=== PATIENT | female | born 1995 | race Caucasian/White ===

== ENCOUNTER 2021-07-26 09:16 | Emergency (ER) | payer OTHER, MEDICAID, SELFPAY ==
[2021-07-26 09:43] VITALS: BP 143/93; PULSE 67; RESP 19; TEMP 36.9; O2SAT 99; BMI 30.3
[2021-07-26 10:17] LABS: Appearance Urine UA SL CLOUDY; Bilirubin Urine UA NEGATIVE (NEGATIVE); Color Urine UA YELLOW; Glucose Urine UA NEGATIVE (Negative); Ketones Urine UA NEGATIVE (NEGATIVE); Leukocyte Esterase Urine UA 3+ (NEGATIVE); Nitrite Urine UA NEGATIVE (Negative); Occult Blood Urine UA TRACE-LYSED (Negative); Protein Urine UA NEGATIVE (Negative); Specific Gravity Urine UA 1.015 (1.000-1.035); Urobilinogen Urine UA 0.2 E.U./dL (0.2)
[2021-07-26 10:22] LABS: Bacteria Urine Moderate (10-30); Culture Indicated Urine Cult Not Indicated; RBC Urine 1-5/HPF (0-5/HPF); Squamous Epithelial Cell Urine 10-30 /HPF (0-5/HPF); WBC Urine 10-30/HPF (0-5/HPF)
[2021-07-26 11:45] LABS: Urine Chlamydia NOT DETECTED; Urine N gonorrhoeae NOT DETECTED
== END 2021-07-26 10:55 | disposition left against medical advice (07) ==
PROVIDERS: Emergency Provider Emergency Medicine
DX: R10.9 Unspecified abdominal pain (principal); N89.8 Other specified noninflammatory disorders of vagina; Z11.3 Encounter for screening for infections with a predominantly sexual mode of transmission
CPT/HCPCS: 81001; 81003; 81025; 87491; 87591; 99282

== ENCOUNTER 2022-03-01 11:04 | Emergency (ER) | payer OTHER, MEDICAID, SELFPAY ==
[2022-03-01 11:33] VITALS: BP 144/91; PULSE 78; RESP 15; TEMP 36.2; O2SAT 99; BMI 31.8
--- NOTE | 2022-03-01 11:36 | DI.RAD.S_ITS ---
PROCEDURE: XR CHEST 1V INDICATIONS: chest pain TECHNIQUE: One view of the chest was acquired. COMPARISON: None. FINDINGS: Surgical changes and devices: None. Lungs and pleura: Lungs are clear. No pleural effusions or pneumothorax. Mediastinum: Mediastinal contours appear normal. Heart size is normal. Bones and chest wall: No suspicious bony lesions. Overlying soft tissues appear unremarkable. IMPRESSION: No acute cardiopulmonary process demonstrated radiographically. Dictated by: Trev Cain M.D. on 03/01/2022 at 12:41 Approved by: Trev Cain M.D. on 03/01/2022 at 12:41
[2022-03-01 11:53] LABS: Add Manual Diff / Slide Review NO; Basophils Absolute Auto 0 /uL (0-100); Basophils Percent Auto 0.4 % (0-2); Eosinophils Absolute Auto 100 /uL (0-450); Eosinophils Percent Auto 1.5 % (2-4); Hematocrit 41.1 % (36-46); Hemoglobin 14.2 g/dL (12.0-16.0); Lymphocytes Absolute Auto 2200 /uL (1100-4500); Lymphocytes Percent Auto 25.3 % (25-40); Mean Corpuscular HGB Conc 34.4 % (30-36); Mean Corpuscular Hemoglobin 31.2 PG (26-34); Mean Corpuscular Volume 90.6 fL (80-100); Monocytes Absolute Auto 500 /uL (0-900); Monocytes Percent Auto 5.7 % (3-14); Neutrophils Absolute Auto 6000 /uL (1500-7000); Neutrophils Percent Auto 67.1 % (50-75); Platelet Count 314 X10^3/uL (150-400); Red Blood Cell Count 4.53 X10^6/uL (4.0-5.2); Red Cell Distribution Width 12.4 % (11.6-14.8); White Blood Cell Count 8.9 X10^3/uL (4.5-11.0)
[2022-03-01 12:05] LABS: Alanine Aminotransferase 30 IU/L (<35); Albumin 4.5 g/dL (3.5-5.0); Albumin Globulin Ratio 1.3 (1.0-2.8); Alkaline Phosphatase 58 U/L (38-126); Aspartate Aminotransferase 23 IU/L (14-36); Bilirubin Total 0.5 mg/dL (0.2-1.3); Blood Urea Nitrogen 12 mg/dL (7-17); Calcium 9.5 mg/dL (8.4-10.2); Carbon Dioxide 25 mmol/L (22-32); Chloride 102 mmol/L (98-107); Creatine Kinase 49 U/L (30-135); Estimated Glomerular Filt Rate > 60 mL/min (>60); Globulin 3.4 g/dL (1.7-4.1); Glucose 117 mg/dL (70-100); HEMOLYSIS < 15 (0-50); Lipase 43 U/L (23-300); Magnesium 1.9 mg/dL (1.6-2.3); Potassium 3.7 mmol/L (3.4-5.1); Sodium 138 mmol/L (137-145); Total Protein 7.9 g/dL (6.3-8.2)
[2022-03-01 12:17] LABS: Troponin I < 0.012 ng/mL (0.01-0.034)
[2022-03-01 13:36] VITALS: BP 142/72; PULSE 74; RESP 16; O2SAT 97
[2022-03-01 13:55] LABS: Pregnancy Test Urine Negative (Negative)
[2022-03-01 13:58] LABS: Bacteria Urine Many (>30); Culture Indicated Urine Specimen Cultured; RBC Urine 0-1/HPF (0-5/HPF); Squamous Epithelial Cell Urine 10-30 /HPF (0-5/HPF); WBC Urine 5-10/HPF (0-5/HPF)
[2022-03-01 14:16] LABS: Influenza A - CEPHEID Flu A NEGATIVE (NEGATIVE); Influenza B - CEPHEID Flu B NEGATIVE (NEGATIVE); Respiratory Syncytial Virus Negative (Negative)
--- NOTE | 2022-03-01 14:20 | ED_ITS ---
HPI - Chest Pain General Chief Complaint: Chest Pain Stated Complaint: states bad chest pains past few days Time Seen by Provider: 03/01/22 12:11 Source: patient Mode of arrival: Ambulatory Limitations: no limitations Related Data Previous Rx's Medication Instructions Recorded cephalexin 500 mg capsule 500 mg PO BID #14 caps 03/01/22 lidocaine 5 % topical patch 1 patch topical DAILY #15 ea 03/01/22 (Lidoderm) metronidazole 500 mg tablet 500 mg PO BID #14 tabs 03/01/22 Allergies Allergy/AdvReac Type Severity Reaction Status Date / Time Sulfa (Sulfonamide Allergy Difficulty Verified 03/01/22 11:33 Antibiotics) Breathing Patient History Social History Smoking Status: Current some day smoker Smoking Status: Current some day smoker tobacco type: cigarettes alcohol intake frequency: a few times a month Substance Use Type: does not use Exam Initial Vital Signs Initial Vital Signs: Vital Signs Temperature 97.2 F L 03/01/22 11:33 Pulse Rate 78 03/01/22 11:33 Respiratory Rate 15 03/01/22 11:33 Blood Pressure 144/91 H 03/01/22 11:33 Pulse Oximetry 99 03/01/22 11:33 Oxygen Delivery Method 03/01/22 11:33 Course Orders Ordered: ED Orders 03/01/22 11:36 XR chest 1V Stat EKG-12 Lead Stat 03/01/22 11:42 Complete Blood Count AUTO DIFF Stat Comprehensive Metabolic Panel Stat Lipase Stat Magnesium Stat Troponin & CK Cardiac Panel Stat 03/01/22 13:30 Covid-19 + FLU A/B + RSV - PCR Stat 03/01/22 13:32 Test Urine Stat Urine Culture Stat Urine Microscopic Stat 03/01/22 14:21 Wet Prep Tric BV Pao Stat Discontinued Medications Cephalexin HCl (Cephalexin 250 Mg Capsule) 1,000 mg PO NOW ONE Stop: 03/01/22 14:23 Last Admin: 03/01/22 14:34 Dose: 1,000 mg Documented By: CHARITY Ketorolac Tromethamine (Ketorolac 10 Mg Tablet) 10 mg PO NOW ONE Stop: 03/01/22 14:28 Last Admin: 03/01/22 14:34 Dose: 10 mg Documented By: CHARITY Metronidazole (Metronidazole 500 Mg Tablet) 1,000 mg PO NOW ONE Stop: 03/01/22 14:23 Last Admin: 03/01/22 14:34 Dose: 1,000 mg Documented By: CTS Vital Signs Vital signs: Vital Signs - 8 hr 03/01/22 11:33 03/01/22 13:36 Temperature 97.2 F L Pulse Rate 78 74 Respiratory Rate 15 16 Blood Pressure 144/91 H 142/72 H Pulse Oximetry 99 97 Oxygen Delivery Method Room Air Room Air MDM - Chest Pain Lab Data Lab results narrative: SPEC #: [id number] KARYNA: 03/01/22 STATUS: COMP REQ #: [id number] SPDESC: RECD: 03/01/[address]: Anabelle Mike SOURCE: Vaginal ENTR: 03/01/[address]: FAX TO: ORDERED: Wet Prep Procedure Result Verified Site Wet Prep Tric BV Pao Final 03/01/221438 White blood cells Occasional WBC seen Clue cells: None seen Yeast: None seen Trichomonas: None seen Result diagrams: 03/01/22 11:42 03/01/22 11:42 Labs: Lab Results 03/01/22 03/01/22 03/01/22 Range/Units 11:42 11:42 13:30 WBC 8.9 (4.5-11.0) X10^3/uL RBC 4.53 (4.0-5.2) X10^6/uL Hgb 14.2 (12.0-16.0) g/dL Hct 41.1 (36-46) % MCV 90.6 (80-100) fL MCH 31.2 (26-34) PG MCHC 34.4 (30-36) % RDW 12.4 (11.6-14.8) % Plt Count 314 (150-400) X10^3/uL Neut % (Auto) 67.1 (50-75) % Lymph % (Auto) 25.3 (25-40) % Pershing % (Auto) 5.7 (3-14) % Eos % (Auto) 1.5 L (2-4) % Baso % (Auto) 0.4 (0-2) % Neut # (Auto) 6000 (3682-6544) /uL Lymph # (Auto) 2200 (1794-4866) /uL [place] # (Auto) 500 (0-900) /uL Eos # (Auto) 100 (0-450) /uL Baso # (Auto) 0 (0-100) /uL Sodium 138 (137-145) mmol/L Potassium 3.7 (3.4-5.1) mmol/L Chloride 102 (98-107) mmol/L Carbon Dioxide 25 (22-32) mmol/L BUN 12 (7-17) mg/dL Creatinine 0.63 (0.52-1.04) mg/dL Estimated GFR > 60 (>60) mL/min BUN/Creatinine Ratio 19.0 (6-22) Glucose 117 H (70-100) mg/dL Calcium 9.5 (8.4-10.2) mg/dL Magnesium 1.9 (1.6-2.3) mg/dL Total Bilirubin 0.5 (0.2-1.3) mg/dL AST 23 (14-36) IU/L ALT 30 (<35) IU/L Alkaline Phosphatase 58 (38-126) U/L Total Creatine Kinase 49 (30-135) U/L CK-MB (CK-2) TNP CK-MB (CK-2) Rel Index TNP Troponin I < 0.012 (0.01-0.034) ng/mL Total Protein 7.9 (6.3-8.2) g/dL Albumin 4.5 (3.5-5.0) g/dL Globulin 3.4 (1.7-4.1) g/dL Albumin/Globulin Ratio 1.3 (1.0-2.8) Lipase 43 (23-300) U/L Urine RBC (0-5/HPF) Urine WBC (0-5/HPF) Ur Squamous Epith Cells (0-5/HPF) Urine Bacteria (None) Ur Culture Indicated? Urine Test (Negative) SARS-CoV-2 (PCR) Negative (Negative) Influenza A (RT-PCR) Flu a negative (NEGATIVE) Influenza B (RT-PCR) Flu b negative (NEGATIVE) RSV (PCR) Negative (Negative) 03/01/22 03/01/22 Range/Units 13:32 13:32 WBC (4.5-11.0) X10^3/uL RBC (4.0-5.2) X10^6/uL Hgb (12.0-16.0) g/dL Hct (36-46) % MCV (80-100) fL MCH (26-34) PG MCHC (30-36) % RDW (11.6-14.8) % Plt Count (150-400) X10^3/uL Neut % (Auto) (50-75) % Lymph % (Auto) (25-40) % [place]hing % (Auto) (3-14) % Eos % (Auto) (2-4) % Baso % (Auto) (0-2) % Neut # (Auto) (0374-9413) /uL Lymph # (Auto) (1367-6433) /uL [place] # (Auto) (0-900) /uL Eos # (Auto) (0-450) /uL Baso # (Auto) (0-100) /uL Sodium (137-145) mmol/L Potassium (3.4-5.1) mmol/L Chloride (98-107) mmol/L Carbon Dioxide (22-32) mmol/L BUN (7-17) mg/dL Creatinine (0.52-1.04) mg/dL Estimated GFR (>60) mL/min BUN/Creatinine Ratio (6-22) Glucose (70-100) mg/dL Calcium (8.4-10.2) mg/dL Magnesium (1.6-2.3) mg/dL Total Bilirubin (0.2-1.3) mg/dL AST (14-36) IU/L ALT (<35) IU/L Alkaline Phosphatase (38-126) U/L Total Creatine Kinase (30-135) U/L CK-MB (CK-2) CK-MB (CK-2) Rel Index Troponin I (0.01-0.034) ng/mL Total Protein (6.3-8.2) g/dL Albumin (3.5-5.0) g/dL Globulin (1.7-4.1) g/dL Albumin/Globulin Ratio (1.0-2.8) Lipase (23-300) U/L Urine RBC 0-1/hpf (0-5/HPF) Urine WBC 5-10/hpf H (0-5/HPF) Ur Squamous Epith Cells 10-30 /hpf H (0-5/HPF) Urine Bacteria Many (>30) H (None) Ur Culture Indicated? Specimen cultured Urine Test Negative (Negative) SARS-CoV-2 (PCR) (Negative) Influenza A (RT-PCR) (NEGATIVE) Influenza B (RT-PCR) (NEGATIVE) RSV (PCR) (Negative) Point of Care Testing Test Results Negative Urine Dip Bedside Urine Glucose Negative Bedside Urine Bilirubin - Negative Bedside Urine Ketone - Negative Urine Specific [place] 1.030 Bedside Urine Occult Blood - Negative Bedside Urine pH 6.0 Bedside Urine Protein - Negative Bedside Urine Urobilinogen - Negative Bedside Urine Nitrite - Negative Bedside Urine Leukocytes + 70 Esterase Imaging Data Chest x-ray: Radiologist's Impression: PROCEDURE:? XR CHEST 1V ? INDICATIONS:? chest pain ? TECHNIQUE:? One view of the chest was acquired.? ? COMPARISON:? None. ? FINDINGS:? ? Surgical changes and devices:? None.? ? Lungs and pleura:? Lungs are clear.? No pleural effusions or pneumothorax.? ? Mediastinum:? Mediastinal contours appear normal.? Heart size is normal.? ? Bones and chest wall:? No suspicious bony lesions.? Overlying soft tissues appear unremarkable.? ? IMPRESSION:? No acute cardiopulmonary process demonstrated radiographically. ? ? Dictated by: Trev Cain M.D. on 03/01/2022 at 12:41 ? ? Approved by: Trev Cain M.D. on 03/01/2022 at 12:41 ? MDM Narrative Medical decision making narrative: Is reproducible with palpation and deep inspiration. She endorses history of bacterial vaginosis endorses some abnormal vaginal discharge. Chest x-ray was negative for acute cardio pulmonary process. Lab work without any significant abnormalities, no electrolyte deficiencies, no elevated liver enzymes, troponin negative, UA was positive for WBCs, and many bacteria. Wet mount was positive for occasional WBCs. Urine culture is pending. Prescribed patient Keflex b.i.d. for the next 7 days, Flagyl b.i.d. for bacterial vaginosis, patient wishes to be discharged now without results ready. Told her we would call her if her other tests are positive after discharge, her COVID PCR was negative as well as her influenza a, B, and RSV. Urine was negative as well. Encourage patient to stay hydrated, empty her bladder frequently, she was prescribed Flagyl b.i.d. for the next 7 days and lidocaine patches as needed for rib pain. Patient is appropriate and amenable to discharge home. Vital signs are stable on repeat examination is unremarkable. Patient has been informed of results. Patient has been given strict return to ER precautions for any new or worsening symptoms. Patient understands to follow up closely with outpatient providers as instructed. Patient understands plan and agrees to discharge home. All questions and concerns answered at this time. Discharge Plan Departure Patient Disposition: Home Clinical Impression: Acute costochondritis, Bacterial vaginitis, Acute cystitis with hematuria Instructions: Bacterial Vaginosis, Acute Cystitis, Costochondritis Activity Restrictions/Additional Instructions: *You have been diagnosed with a bladder infection, likely bacterial vaginitis but I will not positive. Please take the Keflex twice a day for the next 5 days, I will give you a prescription for 7 days is you still have ongoing symptoms. Please take the Flagyl twice a day for the next 7 days. Please follow-up with your primary doctor for a test of cure if you are having ongoing symptoms. We will call you if the respiratory panel is positive, if so, please stay hydrated, please wait 24 hours while on antibiotics before having sex again to avoid worsening of this. Return if you any worsening, try ibuprofen and Tylenol every 6 hours as needed pain. Lidocaine patches may be helpful for your chest pain. Please stay hydrated and drink plenty of water throughout the day. *What to do: *Please continue to take your regular medications as directed. [x ] New medication prescriptions sent to your pharmacy: [[facility] ] [ ] New medication written as a paper prescription [ ] No new medications given *Please follow up with your primary care provider in 2-3 days, call for an appointment. Let them know you were seen in the Emergency Department and that we asked that you be seen for follow-up. We will electronically transmit a record of today's note if your PCP is in our system *If you do not have a primary care provider please contact [phone] to establish care with one of the [facility] primary care providers. *Return to Emergency Department if you should have any new, worsening, or concerning symptoms, such as [fever greater than 101F, chills, worsening pain, persistent vomiting or other bothersome symptoms]. Prescriptions: New metronidazole 500 mg tablet 500 mg PO BID Qty: 14 0RF lidocaine [Lidoderm] 5 % adhesive patch,medicated 1 patch topical DAILY Qty: 15 0RF Rx Instructions: leave on most painful area for up to 12 hrs cephalexin 500 mg capsule 500 mg PO BID Qty: 14 0RF Visit Report Forms: Patient Portal/API
[2022-03-01] MEDS: metroNIDAZOLE 500 MG TABLET 1000 MG PO (14:34)
[2022-03-01] MEDS: KETOROLAC 10 MG TABLET PO (14:34)
[2022-03-01] MEDS: cephALEXin 250 MG CAPSULE 1000 MG PO (14:34)
[2022-03-01 15:03] LABS: COVID-19 CEPHEID 4-PLEX PCR Negative (Negative)
== END 2022-03-01 14:41 | disposition home or self-care (01) ==
PROVIDERS: Emergency Medicine; Emergency Provider Nurse Practitioner Critical Care Medicine
DX: R07.9 Chest pain, unspecified (principal); M94.0 Chondrocostal junction syndrome [Tietze]; N76.0 Acute vaginitis; N30.01 Acute cystitis with hematuria; Z20.822 Contact with and (suspected) exposure to COVID-19
CPT/HCPCS: 0241U; 36415; 71045; 80053; 81003; 81015; 81025; 82550; 83690; 83735; 84484; 85025; 87086; 87210; 93005; 99284

== ENCOUNTER 2024-10-07 20:11 | Emergency (ER) | payer OTHER, SELFPAY ==
[2024-10-07 20:41] VITALS: BP 139/89; PULSE 85; RESP 18; TEMP 37.1; O2SAT 97; BMI 34.3
--- NOTE | 2024-10-07 20:49 | DI.US.S_ITS ---
PROCEDURE: US OB <= 14 WEEKS FETUS INDICATIONS: 6 weeks cramping/rule out ectopic OUTSIDE/PRIOR DATING DATA: Last menstrual period (LMP): 08/24/24. LMP-based estimated date of delivery (DINESH): 05/31/25. First dating scan (date and location): 10/07/24, current exam. Estimated date of delivery (DINESH) from first dating scan: 06/01/25. TECHNIQUE: Real-time scanning was performed of the fetus and maternal pelvic organs, with image documentation. Endovaginal scanning was also performed to better visualize the fetus and maternal ovaries. COMPARISON: None. FINDINGS: An intrauterine is present including a single pole with an average crown-rump length of 4.1 mm corresponding to a six week one day plus or minus four day gestation. There is detectable cardiac activity in the fetus at a rate of 105 beats per minute. A normal yolk sac is present. There is no subchorionic hemorrhage. The maternal uterus is anteverted. The cervix is closed. There is no pathologic free pelvic fluid. There is a peripherally vascular corpus luteum on the left ovary. IMPRESSION: Early, single living intrauterine with a gestational age of six weeks one day and sonographic due date in good agreement with the clinical age. We strive to produce accurate, complete, and clear reports of imaging services. To assist us in improving patient care, this report was composed using standard report templates and voice recognition software. Therefore, it may contain abnormal punctuation, insertions and/or omissions. Occasional wrong-word or sound-alike substitutions may occur. Though we review the report and make efforts to correct it, we do recommend that the report be read carefully in proper context to recognize any text inaccuracies. Dictated by: Siomara Bowers M.D. on 10/07/2024 at 23:46 Approved by: Siomara Bowers M.D. on 10/07/2024 at 23:48
[2024-10-07 21:20] LABS: Bacteria Urine Many (>30); Mucus Urine 2+ (Negative); RBC Urine 0-1/HPF (0-5/HPF); Squamous Epithelial Cell Urine 5-10 /HPF (0-5/HPF); Urine Volume 10mL (spun); WBC Urine 1-5/HPF (0-5/HPF)
[2024-10-08 01:13] VITALS: BP 158/94; PULSE 78; O2SAT 99
[2024-10-08 01:30] VITALS: BP 134/89; PULSE 78; O2SAT 99
--- NOTE | 2024-10-08 01:33 | PC.NURSE ---
Printed copy of US report given to pt at this time. Explained to pt that she will see the provider and she can review any further questions that she may have. Pt states that she did not plan for a baby nor does she want to keep it. She will follow up next week (Sunday) with [facility].
--- NOTE | 2024-10-08 01:47 | ED_ITS ---
HPI - General Adult General Chief complaint: OB/Uterine Contractions Stated complaint: 6 wks , Cramps Time Seen by Provider: 10/08/24 01:02 Source: patient Mode of arrival: Ambulatory History of Present Illness HPI narrative: 29-year-old female SAB 1 with last menstrual period 08/24/2024, had positive tests [facility], awaiting follow up with obstetrical provider, now with abdominal cramping through the day today. No vaginal bleeding. No fevers or chills. No dysuria or frequency of urination. Also no cough or shortness of breath. No loose stools diarrhea. Related Data Previous Rx's ?Medication ?Instructions ?Recorded cephalexin 500 mg capsule 500 mg PO BID #14 caps 03/01 lidocaine 5 % topical patch 1 patch topical DAILY #15 ea 03/01/22 (Lidoderm) metronidazole 500 mg tablet 500 mg PO BID #14 tabs 06/21 cephalexin 500 mg capsule 500 mg PO BID #14 caps 10/08 Allergies Allergy/AdvReac Type Severity Reaction Status Date / Time Sulfa (Sulfonamide Allergy Difficulty Verified 10/07/24 20:41 Antibiotics) Breathing Patient History Social History Smoking Status: Current some day smoker Smoking Status: Current some day smoker tobacco type: vaping alcohol intake frequency: a few times a month Exam Narrative Exam Narrative: GENERAL: Well-developed patient, in mild distress. HEAD: Atraumatic. Normocephalic. EYES: Pupils equal round and reactive. Extraocular motions intact. No scleral icterus. No injection or drainage. ENT: Nose without bleeding, purulent drainage. Throat without erythema, tonsillar hypertrophy or exudate. Airway patent. NECK: Trachea midline. Non tender CARDIOVASCULAR: Regular rate and rhythm without murmurs, gallops, or rubs. RESPIRATORY: Clear to auscultation. Breath sounds equal bilaterally. No wheezes, rales, or rhonchi. GASTROINTESTINAL: Abdomen soft, non-tender, nondistended. EXTREMITIES: No edema or joint tenderness. BACK: Nontender without deformity or crepitance. No flank tenderness. NEURO: AOx3. Motor functions grossly nonfocal SKIN: No rash or erythema of visible areas Initial Vital Signs Initial Vital Signs: Vital Signs Temperature 98.7 F 10/07/24 20:41 Pulse Rate 85 10/07/24 20:41 Respiratory Rate 18 10/07/24 20:41 Blood Pressure 139/89 10/07/24 20:41 Pulse Oximetry 97 10/07/24 20:41 Oxygen Delivery Method Room Air 10/07/24 20:41 Course Orders Ordered: ED Orders 10/07/24 20:49 US OB <= 14 weeks fetus Stat 10/07/24 20:50 Urine Culture Stat Urine Microscopic Stat 10/08/24 01:20 ABO RH Type Stat HCG Quantitative /Beta subunit Stat Discontinued Medications Cephalexin HCl (Cephalexin 250 Mg Capsule) 500 mg PO NOW ONE Stop: 10/08/24 02:25 Last Admin: 10/08/24 02:36 Dose: 500 mg Documented By: AB Vital Signs Vital signs: Vital Signs - 8 hr 10/07/24 20:41 10/08/24 01:13 10/08/24 01:13 Temperature 98.7 F Pulse Rate 85 78 Respiratory Rate 18 Blood Pressure 139/89 158/94 H Pulse Oximetry 97 99 Oxygen Delivery Method Room Air 10/08/24 01:30 10/08/24 01:30 10/08/24 02:00 Temperature Pulse Rate 78 68 Respiratory Rate Blood Pressure 134/89 Pulse Oximetry 99 98 Oxygen Delivery Method Room Air 10/08/24 02:00 10/08/24 02:30 Temperature Pulse Rate 72 Respiratory Rate Blood Pressure 136/82 Pulse Oximetry 97 Oxygen Delivery Method Room Air Medical Decision Making Lab Data Lab results reviewed: Yes I reviewed the patient's lab results. Labs: Lab Results 10/07/24 10/08/24 Range/Units 20:50 01:20 HCG, Quant 15879 mIU/mL Urine RBC 0-1/hpf (0-5/HPF) Urine WBC 1-5/hpf (0-5/HPF) Ur Squamous Epith Cells 5-10 /hpf H (0-5/HPF) Urine Bacteria Many (>30) H (None) Urine Mucus 2+ H (Negative) Vol Urine Centrifuged 10ml (spun) Blood Type A Positive Urine Dip Bedside Urine Glucose Negative Bedside Urine Bilirubin - Negative Bedside Urine Ketone - Negative Urine Specific [place] 1.015 Bedside Urine Occult Blood - Negative Bedside Urine pH 6.0 Bedside Urine Protein - Negative Bedside Urine Urobilinogen - Negative Bedside Urine Nitrite - Negative Bedside Urine Leukocytes +++ 500 Esterase Point of care testing: Urine Dip Bedside Urine Glucose Negative Bedside Urine Bilirubin - Negative Bedside Urine Ketone - Negative Urine Specific [place] 1.015 Bedside Urine Occult Blood - Negative Bedside Urine pH 6.0 Bedside Urine Protein - Negative Bedside Urine Urobilinogen - Negative Bedside Urine Nitrite - Negative Bedside Urine Leukocytes +++ 500 Esterase Imaging Data Pelvic ultrasound: Radiologist's Impression: [address] [address] Ultrasound Report Signed Patient: Irene Myers MR#: [id number] : 1995 Acct:[id number] Age/Sex: 29 / F Date of Service: 10/07/24 Loc: ED Accession Number: [id number] Procedure: US OB <= 14 weeks fetus Ordering Provider: Chip Soriano MD PROCEDURE: US OB <= 14 WEEKS FETUS INDICATIONS: 6 weeks cramping/rule out ectopic OUTSIDE/PRIOR DATING DATA: Last menstrual period (LMP): 08/24/24. LMP-based estimated date of delivery (DINESH): 05/31/25. First dating scan (date and location): 10/07/24, current exam. Estimated date of delivery (DINESH) from first dating scan: 06/01/25. TECHNIQUE: Real-time scanning was performed of the fetus and maternal pelvic organs, with image documentation. Endovaginal scanning was also performed to better visualize the fetus and maternal ovaries. COMPARISON: None. FINDINGS: An intrauterine is present including a single pole with an average crown-rump length of 4.1 mm corresponding to a six week one day plus or minus four day gestation. There is detectable cardiac activity in the fetus at a rate of 105 beats per minute. A normal yolk sac is present. There is no subchorionic hemorrhage. The maternal uterus is anteverted. The cervix is closed. There is no pathologic free pelvic fluid. There is a peripherally vascular corpus luteum on the left ovary. IMPRESSION: Early, single living intrauterine with a gestational age of six weeks one day and sonographic due date in good agreement with the clinical age. We strive to produce accurate, complete, and clear reports of imaging services. To assist us in improving patient care, this report was composed using standard report templates and voice recognition software. Therefore, it may contain abnormal punctuation, insertions and/or omissions. Occasional wrong-word or sound-alike substitutions may occur. Though we review the report and make efforts to correct it, we do recommend that the report be read carefully in proper context to recognize any text inaccuracies. Dictated by: Siomara Bowers M.D. on 10/07/2024 at 23:46 Approved by: Siomara Bowers M.D. on 10/07/2024 at 23:48 [facility] Narrative Medical decision making narrative: 29-year-old female current early with abdominal cramping, no vaginal bleeding, currently on oral Flagyl for Gardnerella infection, awaiting obstetrical follow up appointment. Pelvic ultrasound done after triage, showed live intrauterine 6 weeks gestation without acute changes. Urinalysis shows bacteriuria without many inflammatory cells. Urine culture requested. Patient we would like to be treated for possible cystitis, though bacteria in urine could be from recent Gardnerella infection. First dose cephalexin antibiotic given, prescription sent to her pharmacy. Encouraged to drink plenty of fluids. Follow up with her care obstetrical provider advised as scheduled. Return precautions discussed. Discharged home. Discharge Plan Departure Patient Disposition: Home Clinical Impression: Urinary tract infection, Activity Restrictions/Additional Instructions: History of current early , being treated with oral metronidazole for Gardnerella infection, with lower abdominal cramping, no bleeding. Ultrasound pelvis showed early 6 weeks, no ectopic changes. Urinalysis today showed presence of bacteria, unclear if this represents the Gardnerella or possible bladder infection. Since you are having symptoms despite Gardnerella metronidazole treatment, we will add cephalexin antibiotic in case bladder infection. Urine culture was requested from today's urine specimen. Drink plenty of fluids. Follow up with your obstetrical provider as planned. Return to this/nearest emergency department for any change worsening symptoms or any concerns prior. Prescriptions: New cephalexin 500 mg capsule 500 mg PO BID Qty: 14 0RF No Action metronidazole 500 mg tablet 500 mg PO BID Qty: 14 0RF lidocaine [Lidoderm] 5 % adhesive patch,medicated 1 patch topical DAILY Qty: 15 0RF Rx Instructions: leave on most painful area for up to 12 hrs cephalexin 500 mg capsule 500 mg PO BID Qty: 14 0RF Stand Alone Forms: Patient Portal/API
[2024-10-08 02:00] VITALS: BP 136/82; PULSE 68; O2SAT 98
[2024-10-08 02:24] LABS: HCG Quantitative /Beta subunit 29645 mIU/mL
[2024-10-08 02:30] VITALS: PULSE 72; O2SAT 97
[2024-10-08] MEDS: cephALEXin 250 MG CAPSULE 500 MG PO (02:36)
== END 2024-10-08 02:41 | disposition home or self-care (01) ==
PROVIDERS: Emergency Provider Emergency Medicine
DX: O23.41 Unspecified infection of urinary tract in pregnancy, first trimester (principal); N39.0 Urinary tract infection, site not specified; Z3A.01 Less than 8 weeks gestation of pregnancy
CPT/HCPCS: 36415; 76801; 76817; 81003; 81015; 84702; 86900; 86901; 87086; 99284